=== PATIENT | male | born 1970 | race Caucasian/White ===

== ENCOUNTER 2017-05-05 14:23 | Emergency (ER) | payer OTHER ==
[~2017-05-05] VITALS: Ht 182.9 cm; Wt 97.0 kg
[2017-05-05 14:33] VITALS: BP 148/94; PULSE 80; RESP 16; TEMP 97.8; O2SAT 95
[2017-05-05] MEDS ORDERED: [UNRECOGNIZED DRUG - OTHER] (14:42)
[2017-05-05] MEDS ORDERED: PUFFER (14:42)
[2017-05-05] MEDS ORDERED: IBUP800T23 PO (14:49)
[2017-05-05] MEDS ORDERED: PRED20 PO (14:49)
[2017-05-05] MEDS ORDERED: ROBA750T PO (14:49)
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
[2017-05-05] MEDS ORDERED: ORPHENADRINE INJ 60 MG/2 ML AMP IM ONE (15:00)
[2017-05-05] MEDS ORDERED: KETOROLAC TROMETHAMINE 60 MG/2 ML (IM) VIAL IM ONE (15:00)
== END 2017-05-05 15:14 | disposition home or self-care (01) ==
LOC: PHEFT 14:23
DX: M54.32 Sciatica, left side (principal); E78.00 Pure hypercholesterolemia, unspecified
CPT/HCPCS: 96372; 99284; J1885; J2360